=== PATIENT | male | born 1960 | race Caucasian/White ===

== ENCOUNTER 2017-07-08 20:16 | Emergency (ER) | payer SELFPAY ==
[~2017-07-08] VITALS: Ht 170.2 cm; Wt 68.0 kg
[~2017-07-08 20:16] MED LIST: EPINEPHrine 0.1 MG/ML SYG ONE; NA BICARBONATE 8.4% 50 ML SYG ONE
[2017-07-08 20:31] VITALS: Ht 170.2 cm; Wt 68.0 kg
--- NOTE | 2017-07-08 20:39 | ERD ---
ER Documentation Chief Complaint Chief Complaint HPI This is a 56-year-old male that was brought into the emergency department by EMS after the patient had an unwitnessed cardiac arrest. EMS stated that the family had been doing CPR over the abdomen has a stated 10 minutes prior to arrival the patient appeared normal. 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 The patient is a full code. No further history is available other than that EMS immediately began CPR administered 3 rounds of epinephrine and when the patient initially arrived EMS stated he was asystole but did have return of spontaneous circulations and went into PEA. They obtained an Accu-Chek which was 118. He was intubated in the field. ROS All systems reviewed and are negative except as per history of present illness. Allergies Allergies: Coded Allergies: No Known Allergy (Unverified , 07/08/17) Physical Exam Vitals Vital Signs Date Time Temp Pulse Resp B/P Pulse Ox O2 Delivery O2 Flow Rate FiO2 07/08/17 20:31 98.0 Physical Exam Constitutional: Intubated. Unresponsive. HEENT:Normocephalic. Atraumatic. Pupils were fixed and dilated at 5 mm. Patient intubated with no gastric secretions within the oral airway. Neck: No nuchal rigidity. No lymphadenopathy. No posterior cervical spine tenderness or step-offs. Respiratory: No spontaneous respiratory effort. Equal and symmetrical breath sounds heard with bag mask ventilation bilaterally. Cardiovascular: No cardiac activity on auscultation. GI: Abdomen was soft. Nontender. Non Distended. No pulsatile abdominal masses or bruits. Muscle skeletal: No range of motion of the upper and lower extremities with flaccid paralysis Skin: No petechia, no purpura. No lesions on the palms or the soles of the feet. No maculopapular rash. Pallor. NEURO: GCS of 3 patient unresponsive Procedures/MDM This patient presented to the emergency department with a unwitnessed cardiac arrest. ACLS protocol was followed and the patient was immediately placed on a vehicle monitor technician continuous pulse oximetry and IV access was established by nursing staff. The patient had CPR that was contained and was given an amp of bicarbonate and calcium chloride and further epinephrine. The patient did not have return of spontaneous circulation and there did not appear to be any reversible causes of the patient's cardiopulmonary arrest. The patient's pupils were fixed and dilated. The endotracheal tube was in good position as condensation was seen within the tube and equal symmetrical breath sounds were heard bilaterally. Cardiac ultrasound performed by myself at bedside indicated there is no cardiac activity. Therefore at this time time of was called at 2025 by myself. The patient's sister and Godson were present and I did inform them of the patient's cardiopulmonary arrest. They were provided social service support. Departure Diagnosis: Primary Impression: Cardiac arrest Condition: Serious ELBA WALLER Jul 08, 2017 20:39
== END 2017-07-08 23:22 | disposition expired ==
LOC: E/R 20:16
DX: I46.9 Cardiac arrest, cause unspecified (principal); R40.2432 Glasgow coma scale score 3-8, at arrival to emergency department
CPT/HCPCS: 31500; 92950; 99285; J0171